=== PATIENT | female | born 1990 | race Caucasian/White ===

== ENCOUNTER 2016-09-17 07:52 | Day surgery (SDC) | payer OTHER ==
[~2016-09-17 07:52] MED LIST: Buffered Lidocaine 0.9% SYRIN* 5 ML/SYR SYRINGE INTRADERM ONE; Famotidine IV* 10 MG/ML 2 ML (20 mg) IV ONE; Metoclopramide TAB* 10 MG PO ONE
[2016-09-17] MEDS ORDERED: Famotidine IV* 10 MG/ML 2 ML (20 mg) ONE (08:00)
[2016-09-17] MEDS ORDERED: Metoclopramide TAB* 10 MG ONE (08:00)
[2016-09-17] MEDS ORDERED: ceFAZolin 2 GM PREMIX(*) 2 GM/50 ML BAG IVPB ONE (08:01)
[2016-09-17] MEDS ORDERED: Buffered Lidocaine 0.9% SYRIN* 5 ML/SYR SYRINGE ONE (08:01)
[2016-09-17] MEDS ORDERED: Lidocaine 2% PF * 5 ML VIAL ONE (08:40)
[2016-09-17] MEDS ORDERED: Ondansetron INJ* 2 MG/ML VIAL ONE ×2 (08:40→11:46)
[2016-09-17] MEDS ORDERED: Dexamethasone IV* 4 MG/ML 1 ML (4 MG) ONE (08:40)
[2016-09-17] MEDS ORDERED: Ketorolac INJ* 30 MG/ML 1 ML VIAL ONE (08:40)
[2016-09-17] MEDS ORDERED: Propofol* 10 MG/ML 20 ML BTL IV PUSH ONE (08:40)
[2016-09-17] MEDS ORDERED: fentaNYL* 50 MCG/ML 2 ML VIAL (100 MCG VIAL) ONE (08:40)
[2016-09-17] MEDS ORDERED: KETAMINE HCL* 50 MG/ML 10 ML VIAL ONE (08:41)
[2016-09-17] MEDS ORDERED: Midazolam* 1 MG/ML 5 ML VIAL (5 MG) ONE (08:41)
[2016-09-17] MEDS ORDERED: Cisatracurium* 2 MG/ML MDV 5 ML ONE (08:41)
[2016-09-17 08:55] LABS: UR Preg Internal Control QC Line Present
[2016-09-17] MEDS ORDERED: Bupivacaine 0.25% EPI 200,000* 30 ML SDV ONE (09:40)
[2016-09-17] MEDS ORDERED: Silver Nitrate/Potassium Nitr* 1 EA STICK ONE (09:54)
[2016-09-17] MEDS ORDERED: Neostigmine Methylsulfate* 2 MG/2 ML SYRINGE ONE ×2 (10:08→10:10)
[2016-09-17] MEDS ORDERED: Glycopyrrolate IV* 0.2 MG/ML 1 ML VIAL ONE (10:08)
[2016-09-17] MEDS ORDERED: Levalbuterol 1.25MG/0.5ML NEB ONE (10:35)
[2016-09-17] MEDS ORDERED: Levalbuterol 0.63MG/3ML NEB INH PRN (10:36)
[2016-09-17] MEDS ORDERED: oxyCODONE/Acetamin 5/325 MG* TAB PO PRN (10:36)
[2016-09-17] MEDS ORDERED: Ondansetron INJ* 2 MG/ML VIAL IV PRN (10:36)
[2016-09-17] MEDS ORDERED: fentaNYL* 50 MCG/ML 2 ML VIAL (100 MCG VIAL) IV PRN (10:36)
[2016-09-17] MEDS ORDERED: DiMENhydriNATE IV* 50 MG/ML VIAL ONE (12:06)
[2016-09-17 12:19] VITALS: BP 119/77
--- NOTE | 2016-09-17 15:13 | OP ---
DATE OF OPERATION: 09/17/16 [facility] DATE OF : 86 SURGEON: Nohemi Harvey MD ANESTHESIOLOGIST: Dr. Chen ANESTHESIA: General endotracheal. PRE-OP DIAGNOSIS: Misplaced intrauterine device. POST-OP DIAGNOSIS: Misplaced intrauterine device. OPERATIVE PROCEDURE: Diagnostic hysteroscopy, Kyleena IUD insertion, and laparoscopic IUD removal. ESTIMATED BLOOD LOSS: Minimal. URINE OUTPUT: 150 cc. IV FLUIDS: 1350 cc lactated Ringer's. MATERIALS TO LAB: None. INDICATIONS: This patient is a 26-year-old 0 who had an IUD insertion performed at another site about a month ago. The patient had extreme pain during the insertion and IUD strings were not visible when she followed up. On ultrasound which was performed at [facility], it appeared that the IUD was partly in the wall of the cervix and partly in the peritoneal cavity. Considering this, we planned a hysteroscopic evaluation with removal of the IUD if possible. Plan to remove laparoscopically if the IUD is not visible in the uterus. The patient also strongly desired to have a new IUD placed at the time of this procedure since she had been very traumatized from this experience and did not desire to have this performed in the office again. She is extensively counseled and consent was signed. FINDINGS: Normal appearing uterine cavity and cervical canal. No visible evidence of IUD or perforation site. Laparoscopically, the uterus, fallopian tubes, and ovaries all appeared normal. There was no visible perforation site, but the IUD was found intact adjacent to the patient's appendix. This was removed without difficulty. COMPLICATIONS: None. DESCRIPTION OF PROCEDURE: The risks, benefits, and alternatives were described to the patient and informed consent was obtained. The patient was taken to the operating room with IV running where general anesthesia was induced and found to be adequate. The patient was prepped and draped in the normal sterile fashion in the high lithotomy position in Oscar stirrups. A time-out was performed. The bladder was emptied. A bivalved speculum was placed in the vagina and a single- tooth tenaculum was placed on the anterior cervix. The cervix was then gently dilated using Jhon's dilators until a 5 mm hysteroscope could fit through the cervix. At that time, it was advanced through the cervical canal slowly to thus visualize the IUD if it was present. The cervical canal and the uterine cavity were all completely normal with no evidence of an IUD in place. The hysteroscope was then removed. A Kyleena IUD was then prepared and inserted through the cervix and into the uterine cavity without difficulty. The uterus had sounded to about 8 cm. The strings were cut to about 4 cm in length. The tenaculum was then removed from the cervix and a Hulka tenaculum was placed for uterine manipulation. Attention was then turned to the abdomen and gloves were changed. 0.25% Marcaine was then injected into the umbilicus and also about 2 to 3 cm above the pubic symphysis in the midline. A 5 mm incision was made in the umbilicus and also at the suprapubic site horizontally. Penetrating towel clamps were placed on either side of the umbilicus. A 5 mm bladeless trocar was then placed through the incision and intraperitoneal cavity without difficulty using the towel clamps to lift the skin. The abdomen was then insufflated with carbon dioxide gas to a maximum pressure of 15 mmHg. On careful inspection, there was no visible evidence of trauma or bleeding below the trocar insertion site. Another 5 mm bladeless trocar was placed at the suprapubic site without difficulty. The patient was placed in Trendelenburg position. Using a blunt grasper and manipulation of the uterus, the area around the uterus and the adnexa were carefully inspected and there was nothing abnormal present. There was also no visible perforation site. On manipulation of the surrounding bowel, the IUD strings and then IUD were visualized lying adjacent to the patient's appendix. The IUD strings were able to be grasped, and the IUD was pulled out intact through the suprapubic port. At that time, the gas was allowed to escape and the patient was returned to a flat position. The trocars were both removed. The skin was closed with 4-0 Monocryl and the subcuticular stitch and both incisions were covered with DermaFlex skin adhesive. The Hulka tenaculum was then removed from the cervix and there was good hemostasis present. She was returned to the supine position and allowed to awaken. The patient tolerated the procedure well. Sponge, lap, and needle counts were correct x2. [id number]/[facility] #: [id number] [facility]
== END 2016-09-17 12:46 | disposition home or self-care (01) ==
LOC: OR 07:52
PROVIDERS: ATTEND Obstetrics & Gynecology
DX: T83.32XA Displacement of intrauterine contraceptive device, initial encounter (principal); Z30.433 Encounter for removal and reinsertion of intrauterine contraceptive device
CPT/HCPCS: 81025; A9270-GY; J0690; J1100; J1240; J1885; J2250; J2405; J2704; J3010